=== PATIENT | male | born 1960 | race Caucasian/White ===

== ENCOUNTER 2025-01-10 21:12 | Inpatient (IN) | payer MEDICARE, OTHER ==
[~2025-01-10] VITALS: Ht 175.3 cm; Wt 78.5 kg
[2025-01-10] MEDS ORDERED: FERR-68 PO (21:29)
[2025-01-10] MEDS ORDERED: FAMO20TA8 PO (21:29)
[2025-01-10] MEDS ORDERED: CLOZ200T24 PO (21:29)
[2025-01-10] MEDS ORDERED: ACET325T53 PO (21:29)
[2025-01-10] MEDS ORDERED: ASCO-375 PO (21:29)
[2025-01-10] MEDS ORDERED: CHOL100034 PO (21:29)
[2025-01-10] MEDS ORDERED: MAGN400O6 PO (21:29)
[2025-01-10] MEDS ORDERED: MULT-225 PO (21:29)
[2025-01-10] MEDS ORDERED: DIVA500T54 PO (21:29)
[2025-01-10] MEDS ORDERED: NA P133E RC (21:29)
[2025-01-10] MEDS ORDERED: THIA100T74 PO (21:29)
[2025-01-10 22:19] LABS: *BILIRUBIN,URIN NEGATIVE (NEGATIVE); *BLOOD, URINE NEGATIVE (NEGATIVE); *CLARITY,URINE CLEAR (CLEAR); *COLOR,URINE YELLOW (YELLOW); *KETONES,URINE NEGATIVE (NEGATIVE); *PROTEIN,URINE NEGATIVE (NEGATIVE); *UROBILINOGEN,URINE 1.0 E.U./dl (NORMAL); LEUKOCYTE ESTERASE ,URINE NEGATIVE (NEGATIVE); NITRITE, URINE NEGATIVE (NEGATIVE); UGLUCOSE NEGATIVE (NEGATIVE)
[2025-01-10 22:21] LABS: CREATININE 0.7 mg/dL (0.6-1.3); SODIUM SERUM 145.0 mmol/L (136-145); UREA NITROGEN, BLOOD 9.0 mg/dL (7-18)
[2025-01-10 22:22] LABS: PLATELET COUNT (AUTO) 213 K/uL (152-348); RED BLOOD CELL COUNT(AUTO) 4.78 MIL/uL (4.06-5.63); RED CELL DISTRIBUTION WIDTH 18.5 % (12.1-16.2); WHITE BLOOD COUNT (AUTO) 6.6 K/uL (3.6-10.2)
[2025-01-10 22:27] LABS: ASPARTATE AMINOTRANSFERASE 14.0 U/L (15-37); TOTAL PROTEIN, SERUM 5.4 g/dL (6.4-8.2)
[2025-01-10 22:38] LABS: *AMPHETAMINE, URINE NEGATIVE (NEGATIVE); *BARBITURATE, URINE NEGATIVE (NEGATIVE); *BENZODIAZEPINE, URINE NEGATIVE (NEGATIVE); *CANNABINOID, URINE NEGATIVE (NEGATIVE); *COCCAINE, URINE NEGATIVE (NEGATIVE); *OPIATE, URINE NEGATIVE (NEGATIVE); *PHENCYCLIDINE SCREEN,URINE NEGATIVE (NEGATIVE); FENTANYL, URINE NEGATIVE (NEGATIVE)
[2025-01-10 22:43] LABS: ETHANOL < 3 MG/DL (0-10)
[2025-01-10 22:45] LABS: SQUAMOUS EPITHELIAL CELL,UR FEW /HPF (NONE SEEN)
[2025-01-11] MEDS ORDERED: MAGNESIUM HYDROXIDE 30 ML LIQUID UDC PO PRN ×2 (01:00→11:45)
[2025-01-11] MEDS ORDERED: LORAZEPAM 1 MG TABLET PO PRN ×2 (01:00)
[2025-01-11] MEDS ORDERED: TEMAZEPAM 7.5 MG CAPSULE PO PRN ×2 (01:00)
[2025-01-11] MEDS ORDERED: ACETAMINOPHEN 325 MG TABLET PO PRN (01:00)
[2025-01-11] MEDS ORDERED: MAG HYDROX/AL HYDROX/SIMETH 30 ML LIQUID UDC PO PRN (01:00)
[2025-01-11 01:01] VITALS: BP 117/68; TEMP 97.7; O2SAT 95
[2025-01-11] MEDS: BLOOD SUGAR DIAGNOSTIC 1 EACH STRIP VI ONE (01:34)
[2025-01-11] MEDS ORDERED: FLEET ENEMA 133 ML BOTTLE RC PRN (11:45)
[2025-01-11] MEDS ORDERED: ACETAMINOPHEN 325 MG TABLET-SA PATIENTS-PAIN ONLY PO PRN (11:45)
[2025-01-11 16:35] VITALS: BP 149/88; TEMP 97.7; O2SAT 95
[2025-01-11] MEDS: FERROUS SULFATE 325 MG TABEC PO SCH (17:05)
[2025-01-11] MEDS: FAMOTIDINE 20 MG TABLET PO SCH (17:05)
[2025-01-11 20:07] VITALS: BP 138/76; TEMP 98; O2SAT 99
[2025-01-12 08:47] VITALS: BP 138/78; TEMP 98; O2SAT 99
[2025-01-12] MEDS: ASCORBIC ACID 500 MG TABLET PO SCH (09:00)
[2025-01-12] MEDS ORDERED: Medication Not On Formulary EA (Multivitamins (Multiple Vitamins) 1 TAB) PO SCH (09:00)
[2025-01-12] MEDS: THIAMINE HCL 100 MG TABLET PO SCH (09:00)
[2025-01-12] MEDS: MULTIVITAMINS,THERAPEUTIC TABLET PO SCH (09:00)
[2025-01-12] MEDS: CHOLECALCIFEROL 1,000 UNIT TABLET PO SCH (09:00)
[2025-01-12 16:51] VITALS: BP 129/71; TEMP 98; O2SAT 99
[2025-01-12 20:12] VITALS: BP 143/87; TEMP 97.9; O2SAT 97
[2025-01-13 09:00] VITALS: BP 126/65; TEMP 97.6; O2SAT 98
[2025-01-13 18:38] VITALS: BP 144/77; TEMP 97.6; O2SAT 97
[2025-01-13 19:57] VITALS: BP 140/86; TEMP 97.4; O2SAT 95
[2025-01-14 08:21] VITALS: BP 114/76; TEMP 98; O2SAT 99
[2025-01-14 15:25] VITALS: BP 127/67; TEMP 98; O2SAT 94
[2025-01-14 19:58] VITALS: BP 121/80; TEMP 98; O2SAT 97
[2025-01-15 07:37] VITALS: BP 105/71; TEMP 98; O2SAT 97
[2025-01-15 13:45] LABS: CREATININE 0.9 mg/dL (0.6-1.3); SODIUM SERUM 143.0 mmol/L (136-145); UREA NITROGEN, BLOOD 19.0 mg/dL (7-18)
[2025-01-15] MEDS: MIRALAX 17 GM POWD.PACK PO SCH (16:55)
[2025-01-15 19:45] VITALS: BP 123/81; TEMP 98.1; O2SAT 97
[2025-01-16 08:53] VITALS: BP 122/23; TEMP 98; O2SAT 99
[2025-01-16 15:32] VITALS: BP 111/85; TEMP 97.9; O2SAT 97
[2025-01-16 19:42] VITALS: BP 100/59; TEMP 98.1; O2SAT 98
[2025-01-17 07:56] VITALS: BP 108/75; TEMP 98.2; O2SAT 98
[2025-01-17 16:01] VITALS: BP 115/71; TEMP 97.6; O2SAT 98
[2025-01-17 19:39] VITALS: BP 142/101; TEMP 98.2
[2025-01-18 08:38] VITALS: BP 114/72; TEMP 98; O2SAT 98
[2025-01-18 16:47] VITALS: BP 126/82; TEMP 98.2; O2SAT 99
[2025-01-18 19:58] VITALS: BP 116/77; TEMP 98.1; O2SAT 96
[2025-01-19 08:49] VITALS: BP 105/75; TEMP 98; O2SAT 98
[2025-01-19 16:25] VITALS: BP 123/70; TEMP 98.1; O2SAT 96
[2025-01-19 19:48] VITALS: BP 115/79; TEMP 98.1; O2SAT 100
[2025-01-20 07:38] VITALS: BP 141/79; TEMP 97.9; O2SAT 97
== END 2025-01-20 12:30 | DRG 885 ==
LOC: ER 21:29 → GPS 01-11 00:22
PROVIDERS: ADMIT Psychiatry & Neurology Psychiatry; ATTEND Nurse Practitioner Family
DX: F25.0 Schizoaffective disorder, bipolar type (principal); E44.1 Mild protein-calorie malnutrition; E55.9 Vitamin D deficiency, unspecified; E88.09 Other disorders of plasma-protein metabolism, not elsewhere classified; K21.9 Gastro-esophageal reflux disease without esophagitis; R13.10 Dysphagia, unspecified; R26.9 Unspecified abnormalities of gait and mobility; J44.9 Chronic obstructive pulmonary disease, unspecified; Z86.16 Personal history of COVID-19; Z87.891 Personal history of nicotine dependence; Z91.148 Patient's other noncompliance with medication regimen for other reason
CPT/HCPCS: 36415; 71045; 83735; 85025; 93005; G0480